=== PATIENT | female | born 1950 | race African-American/Black ===

== ENCOUNTER 2022-07-04 01:06 | Emergency (ER) | payer MEDICARE ==
[~2022-07-04] VITALS: Ht 177.8 cm; Wt 73.0 kg
[2022-07-04 03:27] LABS: EOSINOPHILS % 1.6 % (0.0-5.0); HEMATOCRIT. 34.3 % (36.0-48.0); HEMOGLOBIN. 11.7 g/dL (12.0-16.0); LYMPHOCYTES % 34.6 % (20.0-50.0); MEAN CORPUSCULAR HEMOGLOBIN 28.3 pg (28.0-32.0); MEAN CORPUSCULAR VOLUME 83.2 fL (81.0-99.0); MEAN PLATELET VOLUME 8.8 fl (7.4-10.4); MONOCYTES % 8.9 % (2.0-8.0); NEUTROPHILS % 53.9 % (40.0-76.0); PLATELET 157 x1000/uL (130-400); RED BLOOD CELL COUNT 4.12 mill/uL (4.2-5.4); RED CELL DISTRIBUTION WIDTH 16.4 % (11.6-14.6)
[2022-07-04 03:49] LABS: CHLORIDE 106 mEq/L (98-107)
[2022-07-04 06:00] VITALS: BP 108/62
== END 2022-07-04 07:13 | disposition left against medical advice (07) ==
LOC: ER 01:06 → SUPCPDRO 07:30 → CANBEDREQ 07-06 22:57
DX: R00.2 Palpitations (principal); I10 Essential (primary) hypertension
CPT/HCPCS: 36415; 71045; 80053; 83880; 84443; 84484; 85025; 93005; 99285